=== PATIENT | female | born 1990 | race Caucasian/White ===

== ENCOUNTER 2024-03-12 08:53 | Emergency (ER) | payer BC, SELFPAY ==
--- OUTSIDE RECORDS SUMMARY | 2024-03-12 08:57 | XMS REPORT | Continuity of Care Document ---
Author Name Unknown Address [address] [facility] [address] [place] [address] [facility] thconnect Address [address] [facility] [place] [address] Care Team Providers Care Dag Sprayer Name Role Phone CHRISTIE GUTIÉRREZ Primary Care Physician Unavailab Julissa Cates Attending Clinician UnavailBev Sanabria Attending Clinician RONAL RICCI Attending Clinician Unava ilKimberly Jay Attending Clinician Unavailable Kimberly Waite Attending Clinician PARIS MACEDO M.D. Attending Clinician Unavailable Julissa Salinas Admitting Clinician UnavailKimberly Chaudhry Admitting Clinician Unavailable Payers Payer Name Policy Type Policy Number Effective Date Expirati on Date Source [facility] [id number] 2015 00:00:00 202 07-22-10 00:00:00 Problems Condition Name Condition Details Condition Category Status Onset Date Resolution Date Last Treatment Date Treating Clinician Comments Source No known active problems No known active problems Disease Abbie Metzger Head ache Head ache Problem HL7.CCDAR2 Active [facility] Blurred vision Blurred vision Problem HL7.CCDAR2 Active [facility] History of acute pyelonephr itis History of acute pyelonephr itis Problem HL7.CCDAR2 Resolve d [facility] Allergies, Adverse Reactions, Alerts Allergy Name Allergy Type Status Severity Reaction(s) Onset Date Inactive Date Treating Clinician Comments Source Benadryl Allergy- Sinus-He adach Propensi ty to adverse reaction s Active Itching 8-10 00:00: 00 Abbie Metzger BENADRYL ALLERGY DECONGES TANT DRUG Active Hives 06 00:00: 00 [facility] LATEX DRUG INGREDI Active Other-Cmnt 2015-07 00:00: 00 [facility] Latex Propensi ty to adverse reaction s Active Other 2015-07 00:00: 00 Blisters Abbie sanjeev latex DA Active [place] BLISTERS 0 11-21 00:00: 00 [facility] diphenhy dramine HCl DA Active [place] 0 11-21 00:00: 00 [facility] latex DA Active [place] 0 11-21 00:00: 00 [facility] diphenhy dramine HCl DA Active [place] HIVES, EYE SWELL 0 11-21 00:00: 00 [facility] Benadryl drug allergy Active [facility] Latex Gloves drug allergy Active [facility] Family History Family Member Diagnosis Comments Start Date Stop Date Sourc e Mother Family history of ma lignant neoplasm of ovary [facility] Mother Family history of mi graine headaches [facility] Social History Social Habit Start Date Stop Date Quantity Comments Source Sex Assigned At 1990 00:00:00 1990 00:00:00 F Abbie Metzger Smoking Status Start Date Stop Date Source Never smoked tobacco Abbie Metzger Medications Ordered Medication Name Filled Medication Name Start Date Stop Date Current Medication? Ordering Clinician Indication Dosage Frequency Signature (SIG) Comments Components Source Dexamethaso ne 6 MG oral Tablet 08-22 00:00: 00 Yes [id number] 6mg Take 1 tablet (6 mg total) by mouth daily (with breakfast) Abbie Metzger Benzonatate 200 MG oral Capsule 08-22 00:00: 00 Yes [id number] 200mg Q.[id number] 3D Take 1 capsule (200 mg total) by mouth 3 times daily as needed for cough Abbie Metzger Pseudoeph-B romphen-DM (Bromfed DM) 30-2-10 MG/5ML oral Syrup 08-22 00:00: 00 Yes [id number] 10mL Q.25D Take 10 mL by mouth 4 times daily as needed Abbie Metzger Escitalopra m Oxalate 10 MG oral Tablet 08-22 00:00: 00 Yes [id number] 10mg Take 1 tablet (10 mg total) by mouth daily Abbie Metzger Escitalopra m Oxalate 10 MG oral Tablet 02-20 00:00: 00 08-22 00:00 :00 No [id number] 10mg Take 1 tablet (10 mg total) by mouth daily Abbie Metzger Vital Signs Vital Name Observation Time Observation Value Comments S ource BP Systolic 2018-03-24 14:20:00 114 mm[Hg] [facility] BP Diastolic 2018-03-24 14:20:00 81 mm[Hg] [facility] Height 2018-03-24 14:20:00 67 [in_us] [facility] Weight 2018-03-24 14:20:00 106 [lb_av] [facility] Body Mass Index Calculated 2018-03-24 14:20:00 16.6 kg/m2 [facility] Heart Rate 2018-03-24 14:20:00 86 /min [facility] Procedures Procedure Date / Time Performed Performing Clinicia n Source MRI Brain wo contrast [id number] 2018-03-24 00:00:00 [facility] History of Tubal Ligation [facility] Encounters Start Date/Time End Date/Time Encounter Type Admission Type Attending Clinicians Care Facility Care Department Encounter ID Source 2020-02-21 11:00:00 Inpatient Irene Acostasa [facility]I [id number] 27 [facility] [place] 2021-08-22 10:00:00 2021-08-22 10:27:26 [facility] Bev Carvalho [id number] [facility]10 00:00:00 2021-05-10 00:00:00 Outpatient RONAL RICCI [id number] Abbie [facility] 2021-05-09 00:00:00 2021-05-09 00:00:00 Outpatient RONAL RICCI [id number] Abbie [facility] 2021-03-06 16:00:00 2021-03-06 16:00:00 Outpatient RONAL RICCI [id number] Abbie [facility] 2021-02-20 14:30:00 2021-02-20 14:30:00 Outpatient RONAL RICCI [id number] [facility] 2020-01-12 14:00:00 2020-01-12 14:00:00 Outpatient Julissa Salinas [facility] [id number] [facility] 2019-09-20 18:41:09 2019-09-20 22:43:00 Emergency X Kimberly LEIVA RUST ERT [id number] [facility] 2019-09-20 18:41:09 2019-09-20 22:43:00 Emergency Kimberly Leiva [facility] [id number] 2018-03-24 14:30:00 2018-03-24 14:30:00 Janessa holland; PARIS MACEDO M.D. TRAN, AN, M.D. [facility] Neurology [id number] [facility] ans Results Test Description Test Time Test Comments Results Result Comments Source - US TRANSVAGINAL W/PELVIS 11:48:00 Patient Name: MONICA WOLFF Unit No: [id number] EXAMS: CPT CODE: [id number] US TRANSVAGINAL W/PELVIS [id number] Exam: Pelvic ultrasound. Exam date: February 21, 2020. CLINICAL HISTORY: Ultrasound in September demonstrated a right teratoma-these images and report are not available for review. COMPARISON: None. Real-time transabdominal and transvaginal imaging of the pelvis with spectral Doppler analysis and color-flow imaging demonstrates a 74 x 46 x 53 mm retrodisplaced uterus. The endometrium measures 7 mm No significant uterine findings are noted. The right ovary measures 46 x 19 x 20 mm and contains few punctate nonspecific calcifications.. Blood flow is identified in the ovary.. The left ovary measures 36 x 21 x 18 mm and contains a few punctate nonspecific calcifications. Blood flow is identified within the ovary.. Nonspecific free fluid is seen in the left adnexal region. IMPRESSION: Nonspecific free fluid in the left adnexal region. No evidence of a teratoma was identified at this exam. The calcifications identified within the ovary most likely represent dystrophic calcification/inclusio n cysts/hemosiderin deposition (all benign). at 1148 Reported and signed by: Christine Mercado MD CC: Julissa Salinas MD Technologist: Sherrie Lemus RDMS Probe: [id number] Trnscrbd D/ (1148) Kwaku Orig Print D/T: S: 02/21/2020 (1151) [facility] NAME: MONICA WOLFF Radiology Department PHYS: Julissa Mooney MD [address] : 1990 AGE: 29 SEX: F [place], [place] [address] LOC: F.RAD PHONE #: [phone] EXAM DATE: 02/21/2020 STATUS: REG CLI FAX #: [phone] RAD NO: Page 1 Signed Report Patient Name: MONICA WOLFFAYNE Unit No: [id number] EXAMS: CPT CODE: [id number] US TRANSVAGINAL W/PELVIS 12352 (Continued) [facility] NAME: MONICA WOLFF Radiology Department PHYS: Julissa Mooney MD [address] : 1990 AGE: 29 SEX: F [place], [place] [address] LOC: Velma.RAD PHONE #: [phone] EXAM DATE: 02/21/2020 STATUS: ANDREA CLI FAX #: [phone] RAD NO: Page 2 Signed Report - DUP AB/PEL/SC/LTD 11:48:00 Patient Name: MONICA WOLFF Unit No: [id number] EXAMS: CPT CODE: [id number] DUP AB/PEL/SC/LTD 23360 Exam: Pelvic ultrasound. Exam date: February 21, 2020. CLINICAL HISTORY: Ultrasound in September demonstrated a right teratoma-these images and report are not available for review. COMPARISON: None. Real-time transabdominal and transvaginal imaging of the pelvis with spectral Doppler analysis and color-flow imaging demonstrates a 74 x 46 x 53 mm retrodisplaced uterus. The endometrium measures 7 mm No significant uterine findings are noted. The right ovary measures 46 x 19 x 20 mm and contains few punctate nonspecific calcifications.. Blood flow is identified in the ovary.. The left ovary measures 36 x 21 x 18 mm and contains a few punctate nonspecific calcifications. Blood flow is identified within the ovary.. Nonspecific free fluid is seen in the left adnexal region. IMPRESSION: Nonspecific free fluid in the left adnexal region. No evidence of a teratoma was identified at this exam. The calcifications identified within the ovary most likely represent dystrophic calcification/inclusio n cysts/hemosiderin deposition (all benign). at 1148 Reported and signed by: Christine Mercado MD CC: Julissa Salinas MD Technologist: Sherrie Lemus RDMS Probe: Trnscrbd D/ (1148) t.[email or web address] Orig Print D/T: S: 02/21/2020 (1151) [facility] NAME: MONICA WOLFF Radiology Department PHYS: Julissa Mooney MD [address] : 1990 AGE: 29 SEX: F [place] [address] LOC: F.RAD PHONE #: [phone] EXAM DATE: 02/21/2020 STATUS: REG CLI FAX #: [phone] RAD NO: Page 1 Signed Report Patient Name: MONICA WOLFF Unit No: [id number] EXAMS: CPT CODE: [id number] DUP AB/PEL/SC/LTD 07315 (Continued) [facility] NAME: MONICA WOLFF Radiology Department PHYS: Julissa Mooney MD [address] : 1990 AGE: 29 SEX: F [place], [place] [address] LOC: Velma.RAD PHONE #: [phone] EXAM DATE: 02/21/2020 STATUS: REG CLI FAX #: [phone] RAD NO: Page 2 Signed Report - US PELVIS COMPLETE 11:48:00 Patient Name: MONICA WOLFF Unit No: [id number] EXAMS: CPT CODE: [id number] US PELVIS COMPLETE [id number] Exam: Pelvic ultrasound. Exam date: February 21, 2020. CLINICAL HISTORY: Ultrasound in September demonstrated a right teratoma-these images and report are not available for review. COMPARISON: None. Real-time transabdominal and transvaginal imaging of the pelvis with spectral Doppler analysis and color-flow imaging demonstrates a 74 x 46 x 53 mm retrodisplaced uterus. The endometrium measures 7 mm No significant uterine findings are noted. The right ovary measures 46 x 19 x 20 mm and contains few punctate nonspecific calcifications.. Blood flow is identified in the ovary.. The left ovary measures 36 x 21 x 18 mm and contains a few punctate nonspecific calcifications. Blood flow is identified within the ovary.. Nonspecific free fluid is seen in the left adnexal region. IMPRESSION: Nonspecific free fluid in the left adnexal region. No evidence of a teratoma was identified at this exam. The calcifications identified within the ovary most likely represent dystrophic calcification/inclusio n cysts/hemosiderin deposition (all benign). at 1148 Reported and signed by: Christine Mercado MD CC: Julissa Salinas MD Technologist: Sherrie Lemus RDMS Probe: Trnscrbd D/ (1148) Kw[facility] Orig Print D/T: S: 02/21/2020 (1151) [facility] NAME: MONICA WOLFF Radiology Department PHYS: Julissa Mooney MD [address] : 1990 AGE: 29 SEX: F [place] [address] LOC: Velma.RAD PHONE #: [phone] EXAM DATE: 02/21/2020 STATUS: REG CLI FAX #: [phone] RAD NO: Page 1 Signed Report Patient Name: MONICA WOLFF Unit No: [id number] EXAMS: CPT CODE: [id number] US PELVIS COMPLETE [id number] (Continued) [facility] NAME: MONICA WOLFFAYNE Radiology Department PHYS: Julissa Mooney MD [address] : 1990 AGE: 29 SEX: F [place] [address] LOC: Velma.RAD PHONE #: [phone] EXAM DATE: 02/21/2020 STATUS: REG CLI FAX #: [phone] RAD NO: Page 2 Signed Report MRI Brain wo contrast [id number] 08:10:00 EXAM: MRI BRAIN WITHOUT CONTRASTDATE: 04/09/2018 8:10 AM CDTINDICATION: 37-year-old female patient complaining of one month of headachesand blurry vision.COMPARISON: None availableTECHNIQUE: Multiplanar, multisequence MRI of the brain without contrast.IV contrast: None.FINDINGS:The cerebellar tonsils lie at the level of the foramen magnum, without evidenceof tonsillar ectopia.The sella turcica is normal in size and configuration.The Meckel's cave is unremarkable.Diffusion -weighted images fail to demonstrate any recent ischemic change.There is no mass lesion, signal change, or structural abnormality.The ventricles and extra-axial spaces are normal.There is no acute or chronic hemorrhagic change.The intracranial arterial and venous structures demonstrate normal flow voids.The visible paranasal sinuses and skull base are unremarkable.IMPRESSIO N:Normal MRI of the brain--This report was dictated by a [employer]/Fellow. I have personallyreviewed the images aswell as the Resident's interpretation and agree with the findings.Read by: Jason Ledezma Resident: Jason Ledezmaictated Date/time: 04/09/18 11:26Electronically Signed by: Henri Barrow 04/09/1817:04FINAL REPORT [facility]
[2024-03-12] MEDS ORDERED: TDAP (DIPHTH,PERTUSS(ACELL),TET VAC) 0.5 ML VIAL IMVAC ONE (09:52)
--- NOTE | 2024-03-12 10:09 | RAD REPORT ---
EXAM DESCRIPTION: RAD - Foot Right 3 View - 03/12/2024 9:58 am CLINICAL HISTORY: Right foot pain status post puncture wound FINDINGS: No fracture or dislocation is seen A radiopaque foreign body is not seen. No bony destructive lesion noted
--- NOTE | 2024-03-12 10:33 | EDPHYS ---
Physician Documentation [facility] Name: Wendi Hartley Age: 33 yrs Sex: Female : 1990 Arrival Date: 03/12/2024 Time: 08:53 Bed 20 Private MD: ED Physician Ming Hussein HPI: 03/12 20:52 This 33 yrs old Female presents to ER via Ambulatory with complaints of Puncture Wound ms3 To Foot - right. 20:52 33-year-old female with no past medical history presents to the emergency department ms3 for right foot pain after stepping on a nail last night. Patient states pain is a 5/10. Patient states the pain is worse with movement or walking. Patient is unsure of her last tetanus vaccine. Historical: - Allergies: 09:13 Lasix; hb 09:13 Benadryl; hb - Home Meds: 09:13 None [Active]; hb - PMHx: 09:13 None; hb - PSHx: 09:13 Tonsillectomy; Tubal Ligation; hb - Immunization history:: Adult Immunizations up to date. - Infectious Disease History:: Denies. - Social history:: Smoking status: Patient denies any tobacco usage or history of. ROS: 20:52 Constitutional: Negative for fever, and chills. Neck: Negative for injury, pain, and ms3 swelling, Cardiovascular: Negative for chest pain, and palpitations. Respiratory: Negative for shortness of breath, cough, wheezing, and pleuritic chest pain, Abdomen/GI: Negative for abdominal pain, nausea, vomiting, diarrhea, and constipation, 20:52 Skin: Positive for Puncture wound right foot, Exam: 20:53 Constitutional: This is a well developed, well nourished patient who is awake, alert, ms3 and in no acute distress. Chest/axilla: Normal chest wall appearance and motion. Nontender with no deformity. Cardiovascular: Regular rate and rhythm with a normal S1 and S2. No gallops, murmurs, or rubs. Normal PMI, no JVD. No pulse deficits. Respiratory: Lungs have equal breath sounds bilaterally, clear to auscultation and percussion. No rales, rhonchi or wheezes noted. No increased work of breathing, no retractions or nasal flaring. Abdomen/GI: Soft, non-tender, with normal bowel sounds. No distension or tympany. No guarding or rebound. No evidence of tenderness throughout. 20:53 Skin: injury, puncture(s), of the right foot, Tenderness to palpation with mild swelling, Vital Signs: 09:12 BP 140 / 81; Pulse 110; Resp 16; Temp 98.3(O); Pulse Ox 100% on R/A; Weight 49.9 kg; hb Height 5 ft. 6 in. ; Pain 5/10; 10:37 BP 112 / 70; Pulse 79; Resp 18; Temp 98.3; Pulse Ox 100% on R/A; Pain 0/10; tm6 09:12 Body Mass Index 17.75 (49.90 kg, 167.64 cm) hb 09:12 Pain Scale: Adult hb 10:37 Pain Scale: Adult tm6 MDM: 09:34 Patient medically screened. ms3 20:54 Differential diagnosis: foreign body, penetrating trauma, cellulitis. Data reviewed: ms3 vital signs, nurses notes, radiologic studies, and as a result, I will discharge patient. I considered the following discharge prescriptions or medication management in the emergency department Medications were administered in the Emergency Department. See MAR. Independent interpretation of the following test(s) in the Emergency Department X-Ray: My interpretation is Right foot x-ray images reviewed by me do not reveal radiopaque foreign. Counseling: I had a detailed discussion with the patient and/or guardian regarding the historical points, exam findings, and any diagnostic results supporting the discharge/admit diagnosis, radiology results, the need for outpatient follow up, to return to the emergency department if symptoms worsen or persist or if there are any questions or concerns that arise at home. Special discussion: I discussed with the patient/guardian in detail that at this point there is no indication for admission to the hospital. It is understood, however, that if the symptoms persist or worsen the patient needs to return immediately for re-evaluation. ED course: Discussed x-ray results with patient. Patient to follow-up with primary care physician in 2 to 3 days. Patient given prescription for Cipro. All questions were answered. Return precautions discussed include worsening symptoms, or any other concerns.. 03/12 09:34 Order name: Foot Right 3 View XRAY ms3 Administered Medications: 09:58 Drug: Boostrix Tdap IM 0.5 ml IM once; as a single dose Route: IM; Site: right deltoid; tm6 10:30 Follow up: Response: (VIS) Vaccine information sheet provided today. Questions and/or tm6 concerns addressed. VIS edition date: Feb 16, 2021.; No adverse reaction Disposition Summary: 03/12/24 10:33 Discharge Ordered Notes: Location: Home ms3 Condition: Stable ms3 Diagnosis - Puncture wound without foreign body, right foot ms3 Followup: ms3 - With: Lex Francis DO - When: 2 - 3 days - Reason: Recheck today's complaints Discharge Instructions: - Discharge Summary Sheet ms3 - Puncture Wound, Keec-js-Owhh ms3 Forms: - Medication Reconciliation Form ms3 - Antibiotic Education ms3 - Prescription Opioid Use ms3 - Patient Portal Instructions ms3 - Leadership Thank You Letter ms3 Prescriptions: - Cipro 500 mg Oral tablet - take 1 tablet ORAL route every 12 hours for 5 days; 10 tablet; Refills: 0, ms3 Product Selection Permitted Signatures: Dispatcher [employer] EDUT Wendi Arellano, RN RN Ming Hussein DO DO ms3 Linda Carpio RN RN tm6 Corrections: (The following items were deleted from the chart) 09:14 09:13 Allergies: No Known Allergies; [facility] 09:14 09:13 PMHx: None; [facility]
--- NOTE | 2024-03-12 10:33 | ER ---
Nurse's Notes [facility] Name: Wendi Hartley Age: 33 yrs Sex: Female : 1990 Arrival Date: 03/12/2024 Time: 08:53 Bed 20 Private MD: Diagnosis: Puncture wound without foreign body, right foot Presentation: 03/12 09:12 Chief complaint: Stepped on nail last night, c/o right foot pain 5/10, unable to bear hb weight. Coronavirus screen: At this time, the client does not indicate any symptoms associated with coronavirus-19. Ebola Screen: No symptoms or risks identified at this time. Initial Sepsis Screen: Does the patient meet any 2 criteria? No. Patient's initial sepsis screen is negative. Does the patient have a suspected source of infection? No. Patient's initial sepsis screen is negative. Risk Assessment: Do you want to hurt yourself or someone else? Patient reports no desire to harm self or others. Onset of symptoms was March 11, 2024. 09:12 Method Of Arrival: Ambulatory hb 09:12 Acuity: FLORES[place] 4 hb Triage Assessment: 09:14 General: Appears in no apparent distress. Behavior is calm, cooperative. Pain: Pain hb currently is 5 out of 10 on a pain scale. at worst was 10 out of 10 on a pain scale. Neuro: Level of Consciousness is awake, alert, obeys commands, Oriented to person, place, time, situation. Cardiovascular: Patient's skin is warm and dry. Respiratory: Respiratory effort is even, unlabored, Respiratory pattern is regular, symmetrical. Injury Description: Puncture sustained to arch of right foot. Historical: - Allergies: 09:13 Lasix; hb 09:13 Benadryl; hb - Home Meds: 09:13 None [Active]; hb - PMHx: 09:13 None; hb - PSHx: 09:13 Tonsillectomy; Tubal Ligation; hb - Immunization history:: Adult Immunizations up to date. - Infectious Disease History:: Denies. - Social history:: Smoking status: Patient denies any tobacco usage or history of. Screenin:15 [facility] ED Fall Risk Assessment (Adult) History of falling in the last 3 months, hb including since admission No falls in past 3 months (0 pts) Confusion or Disorientation No (0 pts) Intoxicated or Sedated No (0 pts) Impaired Gait No (0 pts) Mobility Assist Device Used No (0 pt) Altered Elimination No (0 pt) Score/Fall Risk Level 0 - 2 = Low Risk Oriented to surroundings, Maintained a safe environment, Educated pt \T\ family on fall prevention, incl call for assistance when getting out of bed, Assessed \T\ reinforced patient's understanding of fall precautions. Abuse screen: Denies threats or abuse. Denies injuries from another. Nutritional screening: No deficits noted. Tuberculosis screening: No symptoms or risk factors identified. Assessment: 09:15 General: See triage assessment. hb 10:37 Reassessment: Patient appears in no apparent distress at this time. Patient and/or tm6 family updated on plan of care and expected duration. Pain level reassessed. Patient is alert, oriented x 3, equal unlabored respirations, skin warm/dry/pink. Vital Signs: 09:12 BP 140 / 81; Pulse 110; Resp 16; Temp 98.3(O); Pulse Ox 100% on R/A; Weight 49.9 kg; hb Height 5 ft. 6 in. ; Pain 5/10; 10:37 BP 112 / 70; Pulse 79; Resp 18; Temp 98.3; Pulse Ox 100% on R/A; Pain 0/10; tm6 09:12 Body Mass Index 17.75 (49.90 kg, 167.64 cm) hb 09:12 Pain Scale: Adult hb 10:37 Pain Scale: Adult tm6 ED Course: 08:56 Patient arrived in ED. im 09:07 Ming Hussein DO is Attending Physician. ms3 09:13 Triage completed. hb 09:14 Arm band placed on. hb 09:15 Patient has correct armband on for positive identification. Provided Education on: use hb of call light. 09:15 No provider procedures requiring assistance completed. hb 09:36 Evette Rhodes, RN is Primary Nurse. db 09:50 Linda Carpio, BRANDY is Primary Nurse. tm6 10:00 Foot Right 3 View XRAY In Process Unspecified. EDMS 10:33 Lex Francis DO is Referral Physician. ms3 10:37 Patient did not have IV access during this emergency room visit. tm6 Administered Medications: 09:58 Drug: Boostrix Tdap IM 0.5 ml IM once; as a single dose Route: IM; Site: right deltoid; tm6 10:30 Follow up: Response: (VIS) Vaccine information sheet provided today. Questions and/or tm6 concerns addressed. VIS edition date: Feb 16, 2021.; No adverse reaction Medication: 10:37 Vaccine Information Statement (VIS) provided today. Questions and/or concerns tm6 addressed. VIS edition date: February 16, 2021. Outcome: 10:33 Discharge ordered by . ms3 10:37 Discharged to home ambulatory, tm6 10:37 Condition: stable 10:37 Discharge instructions given to patient, Instructed on discharge instructions, follow up and referral plans. medication usage, Demonstrated understanding of instructions, follow-up care, medications, Prescriptions given X 1, 10:38 Patient left the ED. tm6 Signatures: Dispatcher [employer] EDMS Wendi Arellano, RN RN Ming Hussein DO DO ms3 Evette Rhodes, RN BRANDY Kaia Georges Tawney RN RN tm6 Corrections: (The following items were deleted from the chart) 09:14 09:13 Allergies: No Known Allergies; hb hb 09:14 09:13 PMHx: None; hb hb
[2024-03-12 10:42] VITALS: TEMP 98.3; O2SAT 100
[2024-03-12 10:44] VITALS: BP 112/70
== END 2024-03-12 10:38 | disposition home or self-care (01) ==
LOC: ER 08:53
DX: S91.331A Puncture wound without foreign body, right foot, initial encounter (principal)
CPT/HCPCS: 96372; 99284